=== PATIENT | male | born 1965 | race Caucasian/White ===

== ENCOUNTER 2024-09-21 12:10 | Day surgery (SDC) | payer OTHER, SELFPAY ==
[2024-09-15 11:10] VITALS: BMI 36.4
[2024-09-21] VITALS (9 sets, daily range): BP systolic 130–161; BP diastolic 69–88; PULSE 20–80; RESP 13–21; TEMP 36.1–36.3; O2SAT 92–100; BMI 36.4
[2024-09-21] MEDS: LACTATED RINGERS 1,000 ML 42 ML IV (12:55)
--- NOTE | 2024-09-21 13:32 | PM.PREOP ---
Pre-operative Note Interval Note History & Physical reviewed/Exam performed by Physician: Yes Changes to H&P: No
[2024-09-21] MEDS: CEFAZOLIN VIAL 3 GM in SODIUM CHLORIDE 0.9% 100 ML IV (14:15)
--- NOTE | 2024-09-21 14:32 | SUR.OPER ---
Prone on spine table, head in foam head support, padded chest and pelvic supports, gel pad at knees, lower legs supported by pillows; nipples, genitalia and toes free of pressure, arms secured on foam padded arm boards at <90 degrees abduction. Tape over blanket at thigh secured to table.
[2024-09-21] MEDS: BUPIVACAINE 0.25% (PF) 30 ML, EPINEPHrine 0.15 MG INJ (14:36)
--- NOTE | 2024-09-21 15:17 | PM.OP.1 ---
Operative Date/Time/Diagnoses Date of procedure: 09/21/24 Time of procedure: 14:30 Pre-op diagnosis: 1. L3-4, L4-5 spinal stenosis with neurogenic claudication Post-op diagnosis: same Procedure & Clinicians Procedure: 1. L3-4, L4-5 laminectomies with bilateral partial facetecomies 2. Utilization of microsurgical technique and operating microscope Same procedure as scheduled: Yes Indications: Patient has been having chronic back pain and worsening lumbar radiculopathy and symptoms of neurogenic claudication. Patient was found to have severe L3-4 L4-5 spinal stenosis correlating with his symptoms. Patient failed multiple conservative management with worsening pain weakness and numbness in his lower extremity. Patient has been having difficulty performing activity of daily living. After discussing risks benefits of treatment options, patient elected proceed with surgery. Surgeon: Adalberto Carnes Commercial Baking Teacher: Daisy Sy Click Yes if Unassisted: No Anesthesia Type: General Operative Notes Specimen(s): none sent Estimated Blood Loss (mL): 5 Procedure in detail: Patient was seen in the preoperative area. Risks and benefits of the surgery was discussed with the patient. Informed consent was obtained from the patient and placed in the chart. Surgical site was marked. Patient was taken to the operative room. General anesthesia was administered. Prophylactic antibiotic was given to the patient less than 30 min before the incision was made. Patient was placed into a prone position on the Shahid table. Patient's back was then prepped and draped in the sterile fashion. Time-out was performed at this time. Using AP and lateral C-arm imaging the interval between L3-4 L4-5 was identified and marked on patient's back. A 1 inch incision 1 in from midline was made on the right side. The fascia was incised in line with skin incision. Globus MARS retractors was placed inside the incision and docked onto the L3 and L4 lamina, one level at a time. Using microsurgical technique and operating microscope, a L3-4 L4-5 laminectomy was performed using a Kerrison rongeur. Liagamentum flavum was resected at the site of the laminotomy. Either side of the dura was exposed. Bilateral partial facetcomies was performed to further decompress the lateral recess. After the laminectomy was completed, the area medial lateral superior and inferior to the area of the laminectomy was inspected and explored using a micro curette. No other impinging structure was identified. The wound was then irrigated with sterile normal saline. 40 mg Depo-Medrol was placed into the epidural space. The deep fascia was closed with 1-0 Vicryl. The subcutaneous tissue was closed with 2-0 Vicryl. The skin was closed with skin grayson. Patient tolerated the procedure well. There were no complications. Patient was transferred recovery room in stable condition. The Operation could not have been safely performed without compromising the technical result or length of the procedure, without the assistance of a skilled surgical first assistant. The surgical first assistant was medically necessary for proper positioning, retraction and manipulation of instruments, proper exposure, surgical preparation, and manipulation of tissue. Complications: none Post-operative Condition: stable Disposition: PACU Plan for aftercare: Discharge to home
--- NOTE | 2024-09-21 15:23 | DI.RAD.S_ITS ---
PROCEDURE: XR LUMBAR SPINE 2-3V INDICATIONS: L3-4, L4-5 LAMINECTOMY TECHNIQUE: 2 lateral fluoroscopic views of the lumbar spine were acquired. COMPARISON: Outside Film, CR, XR LUMBAR SPINE WITH OBLIQUES PLUS FLEXION EXTENSION, 07/27/2024, 13:42. FINDINGS: To limited fluoroscopic views of the lumbar spine were acquired in the lateral projection. Surgical instrument projects over the posterior elements at L4-5. IMPRESSION: Intraoperative fluoroscopic support for lumbar spine surgery. Please see separate procedure note for further details. Dictated by: Neville Avila M.D. on 09/21/2024 at 20:43 Approved by: Neville Avila M.D. on 09/21/2024 at 20:45
[2024-09-21] MEDS: OXYCODONE IR 5 MG TABLET PO (16:02)
[2024-09-21] MEDS: ONDANSETRON 4 MG/2 ML INJ IV (16:27)
--- NOTE | 2024-09-21 16:33 | SUR.PHASEII ---
Pt complained of a bit of nausea and pt was given zofran and pt states he feels better and he was also given crackers and diet gingerale. pt states he is feeling better. States pain is minimal at a level 2 and that he is ready to go home.
== END 2024-09-21 16:44 | disposition home or self-care (01) ==
PROVIDERS: PCP Family Medicine; Referring Provider Orthopaedic Surgery Orthopaedic Surgery of the Spine; Visit Provider Orthopaedic Surgery Orthopaedic Surgery of the Spine
PROC: (CPT 63047; principal; 2024-09-21 14:00)
DX: M48.062 Spinal stenosis, lumbar region with neurogenic claudication (principal); M54.16 Radiculopathy, lumbar region
CPT/HCPCS: 63047; 63048; 72100; 76000; J0171; J0690; J1171; J2250; J2405; J2704; J2919; J3010